=== PATIENT | male | born 1995 | race Caucasian/White ===

== ENCOUNTER 2017-08-11 01:50 | Emergency (ER) | payer SELFPAY ==
[~2017-08-11] VITALS: Ht 185.4 cm; Wt 92.1 kg
[2017-08-11 08:00] VITALS: BP 126/74
== END 2017-08-11 08:16 | disposition home or self-care (01) ==
LOC: ER 01:56
DX: M79.671 Pain in right foot (principal); M79.89 Other specified soft tissue disorders
CPT/HCPCS: 73630; 99284; L3260

== ENCOUNTER 2021-08-11 20:05 | Emergency (ER) | payer BC, MEDICAID ==
[~2021-08-11] VITALS: Ht 182.9 cm; Wt 99.8 kg
[2021-08-11] MEDS ORDERED: IOHEXOL 300 MG/ML 100ML BOTTLE IJ ONE (21:09)
[2021-08-11 21:35] LABS: Basophils # (auto) 0.1 10 ^3/uL (0-0.2); Basophils % (auto) 1.2 % (0.0-2.0); Eosinophils # (auto) 0.2 10 ^3/uL (0-0.8); Eosinophils % (auto) 2.6 % (0.0-7.0); Hematocrit 43.6 % (41.0-53.0); Hemoglobin 15.4 g/dL (13.5-17.5); Lymphocytes # (auto) 1.9 10 ^3/uL (0.4-5.4); Lymphocytes % (auto) 28.1 % (10.0-50.0); Mean Corpuscular Hemoglobin 29.8 pg (28.0-32.0); Mean Corpuscular Hgb Conc. 35.4 g/dL (32.0-36.0); Mean Corpuscular Volume 84.2 fL (80.0-100.0); Monocytes # (auto) 0.6 10 ^3/uL (0-1.3); Monocytes % (auto) 9.3 % (0.0-12.0); Neutrophils % (auto) 58.8 % (37.0-80.0); Nucleated Red Blood Cells % 0.1 %; Red Blood Cells 5.18 10^6/uL (4.5-5.90); Red Cell Distribution Width 13.9 % (11.8-14.3); White Blood Cell 6.7 10^3/uL (4.4-10.8)
[2021-08-11 21:43] LABS: Potassium 3.8 mmol/L (3.5-5.1)
[2021-08-11 21:52] LABS: Albumin 4.3 g/dL (3.4-5.0); BUN/Creatinine Ratio 13.3; Bilirubin, Total 0.8 mg/dL (0.2-1.0); Calcium 8.9 mg/dL (8.5-10.1); Total Protein 7.6 g/dL (6.4-8.2)
[2021-08-11 22:21] LABS: Urine Bacteria NONE SEEN /hpf (None Seen); Urine Blood Negative /uL (Negative); Urine Mucus FEW (None Seen); Urine Specific Gravity 1.031 (1.001-1.035); Urine WBC <1 /hpf (0 - 3)
[2021-08-12 00:14] VITALS: BP 151/98
[2021-08-12] MEDS ORDERED: SODIUM CHLORIDE 0.9% 1,000 ML IV ONE (00:30)
== END 2021-08-12 03:00 | disposition home or self-care (01) ==
LOC: ER 20:08
DX: K52.9 Noninfective gastroenteritis and colitis, unspecified (principal)
CPT/HCPCS: 36415; 74177; 80053; 81001; 83690; 85025; 96360; 99285; J7030; Q9967